=== PATIENT | male | born 1965 | race Caucasian/White ===

== ENCOUNTER 2017-02-04 07:32 | Day surgery (SDC) | payer OTHER ==
[2017-01-31 11:48] VITALS: BMI 31.3
[~2017-02-04 07:32] MED LIST: LACTATED RINGERS 1,000 ML IV SCH
[2017-02-04 07:47] VITALS: TEMP 97.2
[2017-02-04 07:49] LABS: Glucose,Whole Blood 140 mg/dL (75-99)
[2017-02-04] MEDS ORDERED: PROPOFOL 10 MG/ML 20 ML VIAL IV ONE (08:03)
[2017-02-04] MEDS ORDERED: LIDOCAINE 1% INJ 10MG/ML (20 ML MDV) ONE (08:03)
[2017-02-04 08:45] VITALS: RESP 18
[2017-02-04 09:13] VITALS: BP 125/81; PULSE 71
--- NOTE | 2017-02-05 14:45 | P.PCN ---
Date of Procedure: 02/04/17 Procedure(s) Performed: Procedure: Colonoscopy and biopsy. Preoperative diagnosis: Blood in the stools and history of colitis. Postoperative diagnosis: 1. 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 2. Low-grade internal hemorrhoids without bleeding at the time of this exam. 3. Isolated ulceration in the terminal ileum biopsied Preparation: HalfLytely prep. Sedation: Was provided by anesthesia. Brief clinical history: The patient is a 51-year-old male with history of colitis since age 18 or 19. His last colonoscopy in June 2015 showed mild proctosigmoiditis involving the distal 30-35 cm of the colon as well as low- grade internal hemorrhoids without bleeding at the time of the exam. A prior colonoscopy in April 2014 showed active proctosigmoiditis. There is family history of colon cancer in his maternal grandfather. In 2009 the patient had an adenomatous polyp removed. He is currently taking Delzicol 400 mg 2 twice a day. The patient continues to have 2-3 bowel movements every morning. These are not diarrheic, unless he eats the wrong items. He sees blood in his stools 2 -3 times per week. This evaluation is to assess for neoplasia and to assess the activity of his colitis to guide therapy. Procedure: With the patient on his left lateral decubitus position and after informed consent and adequate sedation, the perianal area was inspected and it did not show any fissures or fistulas. There were no masses felt on digital rectal examination. The Olympus CFQ 160L video colonoscope was then inserted in the rectum in the usual fashion and advanced to the cecum. I intubated the ileocecal valve and examined the terminal ileum. There was an isolated ulceration in the terminal ileum which I biopsied. The distal 40-45 cm of the colon showed edema and erythema and some friability and there were multiple linear and serpiginous ulcerations covered with white exudate noted in various areas of this segment most prominent in the rectum. There was some patches of normal looking mucosa as previously described. The exam to the cecum, otherwise , showed healthy mucosa. No polyps or tumors were seen or any obvious diverticular disease. I obtained multiple biopsies from the sigmoid and rectum. I then retroflexed endoscope in the rectum before the endoscope was withdrawn. Low-grade internal hemorrhoids were noted but there was no evidence of bleeding. Disposition: The patient tolerated the procedure well. Plan: The patient was advised to increase his does the cold to 33 times a day until I see him in the office and make additional recommendations regarding his care. I will discuss the possible adding of immunosuppressants or biologics depending on his course. I will keep you updated on his progress.
== END 2017-02-04 10:06 | disposition home or self-care (01) ==
LOC: ORWHC2ENDO 07:32
DX: K52.9 Noninfective gastroenteritis and colitis, unspecified (principal); K51.80 Other ulcerative colitis without complications; K64.8 Other hemorrhoids; Z80.0 Family history of malignant neoplasm of digestive organs; E11.9 Type 2 diabetes mellitus without complications; E78.5 Hyperlipidemia, unspecified; Z72.0 Tobacco use; Z79.84 Long term (current) use of oral hypoglycemic drugs; Z79.899 Other long term (current) drug therapy
CPT/HCPCS: 88305; 45380; J2001; J2704

== ENCOUNTER → 2018-12-26 | Outpatient (CLI) | payer OTHER ==
--- NOTE | 2018-12-26 13:09 | US ---
EXAMINATION TYPE: US scrotum with doppler. TECHNIQUE: Grayscale and color Doppler Duplex imaging performed of the scrotum. DATE OF EXAM: 12/26/2018 COMPARISON: NONE CLINICAL HISTORY: 53-year-old male N50.811; N50.89 Right testicular pain and swelling. Recent rectal surgery. FINDINGS: EXAM MEASUREMENTS: TESTICLES: Right Testicle: 4.0 x 2.2 x 3.0 cm Left Testicle: 4.4 x 2.3 x 3.1 cm EPIDIDYMIS HEAD: Right Epididymis: Unable to visualize Left Epididymis: 1.4 cm Doppler performed to assess for testicular vascularity; good bilateral color flow and waveforms are s een. There is no evidence of testicular torsion. Presence of hydroceles: Small amount of fluid visualized medially particularly on the left. Presence of varicoceles: No Difficult visualization of right testicle and epididymis due dirty shadowing. IMPRESSION: 1. No sonographic evidence for testicular torsion. 2. However, there is dirty shadowing within the right scrotum suggesting the presence of air. Correla te with surgical technique to exclude iatrogenically introduced air. Otherwise, correlate to exclude Derick's gangrene. CT as indicated. Legal Process Specialist is calling the office with results.
--- NOTE | 2018-12-26 13:59 | CT ---
EXAMINATION TYPE: CT pelvis wo con DATE OF EXAM: 12/26/2018 COMPARISON: Ultrasound same day HISTORY: 53-year-old male Right testicular pain and swelling. Additional history of recent transrecta l internal hemorrhoid surgery. TECHNIQUE: Contiguous axial scanning of the pelvis without IV contrast. Coronal and sagittal reconstr uctions performed. CT DLP: 366.5 mGycm Automated exposure control for dose reduction was used. FINDINGS: There is air within the right scrotal sac confirmed. No hydrocele on the left. Air extends along the right inguinal canal and right internal iliac chain on both sides of the inferior presacral region. A dditional air extends along the right flank retroperitoneum adjacent to the visualized ascending colo n. No discrete abscess is seen. No abnormal fluid collection the pelvis. Bones: Mild degenerative changes of the hips. IMPRESSION: AIR WITHIN THE RIGHT SCROTUM IS CONFIRMED. AIR EXTENDS ALONG THE RIGHT INGUINAL CANAL AND RIGHT INTER NAL ILIAC CHAIN AND IS LOCATED WITHIN THE BILATERAL PRESACRAL REGION AND ALSO DISSECTS ALONG THE RIGH T FLANK RETROPERITONEUM ADJACENT TO THE VISUALIZED ASCENDING COLON. SMALL RECTAL PERFORATION AND SECO NDARILY TRACKING AIR SHOULD BE CONSIDERED. NO ABSCESS IDENTIFIED. NO SIGNIFICANT SOFT TISSUE THICKENI NG OR FLUID IS SEEN AT THIS TIME. THE PATIENT SHOULD BE CLOSELY MONITORED FOR THE POTENTIAL DEVELOPME NT OF BENITA'S GANGRENE.
== END | disposition home or self-care (01) ==
LOC: RADUSWWP 12:19
PROVIDERS: ATTEND Nurse Practitioner
DX: K63.1 Perforation of intestine (nontraumatic) (principal); N50.811 Right testicular pain; N50.89 Other specified disorders of the male genital organs
CPT/HCPCS: 72192; 76870; 93975

== ENCOUNTER → 2019-01-05 | Outpatient (CLI) | payer OTHER ==
[2019-01-05 07:12] LABS: African American GFR (CKD) >90 (>60 ml/min/1.73 sqM); Blood Urea Nitrogen 18 mg/dL (9-20)
--- NOTE | 2019-01-05 09:07 | CT ---
EXAMINATION TYPE: CT abdomen pelvis w con DATE OF EXAM: 01/05/2019 COMPARISON: December 26, 2018 HISTORY: Other specified disorder of male genitals CT DLP: 1281.5 mGycm CONTRAST: CT scan of the abdomen and pelvis is performed with Oral Contrast and with IV Contrast, patient injec mariya with 100 mL of Isovue 300. FINDINGS: LUNG BASES-: No visible nodule. No infiltrate. LIVER/GB: No calcified gallstones. No space occupying hepatic lesion. Biliary tree is of normal ca liber. PANCREAS: No inflammation. No distinct mass. SPLEEN: No splenic enlargement. No lesion seen. ADRENALS: No nodule. No thickening. KIDNEYS/BLADDER: No hydronephrosis. No nephrolithiasis. No distinct renal mass. Urinary bladder g rossly unremarkable. BOWEL: Normal appendix. Normal bowel caliber. No inflammation. GENITAL ORGANS: Previously noted air within the right scrotal sac extending into the right inguinal canal and pelvis has resolved. Small hydroceles are noted. LYMPH NODES: No greater than 1cm abdominal or pelvic lymph nodes are appreciated. AORTA: No significant abnormality. OSSEOUS STRUCTURES: No significant abnormality is seen. OTHER: No significant additional abnormality is seen. IMPRESSION: 1. Previously noted air within the right scrotal sac extending into the right inguinal canal and pelv is has resolved. Small hydroceles are noted.
== END | disposition home or self-care (01) ==
LOC: RADCTMAIN 06:09
PROVIDERS: ATTEND Nurse Practitioner
DX: N43.3 Hydrocele, unspecified (principal)
CPT/HCPCS: 82565; 84520; 74177; 36415; Q9967

== ENCOUNTER 2020-08-31 06:37 | Day surgery (SDC) | payer OTHER ==
[2020-08-26 09:52] VITALS: BMI 30.8
[~2020-08-31 06:37] MED LIST changes: +DEXAMETHASONE SOD PHOSPHATE 4 MG/ML 1 ML VIAL IV ONE; +LIDOCAINE 1% (10MG/ML) FOR IV START INTRADERMA PRN; +SCOPOLAMINE 1.5MG/72HR PATCH TRANSDERM ONE; +ceFAZolin 1,000 MG in SODIUM CHLORIDE 0.9% IRRIGATIO 1,000 ML IRRIGATION PRN
[2020-08-31 07:43] LABS: Glucose,Whole Blood 154 mg/dL (75-99)
[2020-08-31] MEDS: ONDANSETRON 4 MG/2 ML VIAL IVP ONE ×2 (07:47→10:18)
[2020-08-31] MEDS ORDERED: LIDOCAINE 1% INJ 10MG/ML (20 ML MDV) ONE (08:00)
[2020-08-31] MEDS ORDERED: PROPOFOL 10 MG/ML 20 ML VIAL IV ONE (08:00)
[2020-08-31] MEDS ORDERED: MIDAZOLAM 2 MG/2 ML VIAL ONE (08:00)
[2020-08-31] MEDS ORDERED: KETAMINE 10 MG/ML 20 ML VIAL ONE (08:00)
[2020-08-31] MEDS ORDERED: SUCCINYLCHOLINE CHLORIDE 100 MG/5 ML SYR IV ONE (08:00)
[2020-08-31] MEDS ORDERED: fentaNYL (PF) 50 MCG/ML 2 ML AMP ONE (08:00)
[2020-08-31] MEDS ORDERED: BUPIVACAIN-EPI 0.5%-1:200,000 30 ML VIAL SQ ONE (08:32)
[2020-08-31] MEDS ORDERED: GELATIN SPONGE,ABSORB (LARGE) 1 EACH SPONGE MISCELLANE ONE (08:42)
[2020-08-31] MEDS ORDERED: THROMBIN (BOVINE) 5,000 UNIT VIAL MISCELLANE ONE (08:43)
--- NOTE | 2020-08-31 09:01 | XR ---
EXAMINATION TYPE: XR cervical spine 1V DATE OF EXAM: 08/31/2020 CLINICAL HISTORY: Needle placement TECHNIQUE: Crosstable lateral view of the cervical spine COMPARISON: None. FINDINGS: Crosstable lateral view of the cervical spine demonstrates localization device at the anter ior C6-7 level. Endotracheal tube identified. IMPRESSION: As above
[2020-08-31] MEDS ORDERED: BENZOCAINE/MENTHOL LOZENG 1 EACH LOZENGE MUCOUS MEM PRN (09:49)
[2020-08-31] MEDS ORDERED: HYDROmorphone 1 MG/ML 1 ML SYRINGE IVP PRN (09:49)
[2020-08-31] MEDS ORDERED: HYDROcodone/APAP 5-325MG 1 EACH TAB PO PRN ×2 (09:49→09:50)
[2020-08-31] MEDS ORDERED: HYDROmorphone 0.5 MG/0.5 ML SYRINGE IVP PRN (09:49)
[2020-08-31] MEDS ORDERED: traMADol 50 MG TAB PO PRN (09:50)
[2020-08-31] MEDS ORDERED: CYCLOBENZAPRINE 10 MG TAB PO PRN (09:50)
--- NOTE | 2020-08-31 09:58 | P.OP ---
Date of Procedure: 08/31/20 Preoperative Diagnosis: Cervical stenosis C5 6 C6 7, herniated nucleus pulposis C5 6 C6 7, degenerative disc disease, upper extremity radiculopathy, upper extremity weakness Postoperative Diagnosis: Same Anesthesia: GETA Pathology: none sent Condition: stable Disposition: PACU Description of Procedure: BRIEF OPERATIVE NOTE Preoperative Diagnosis:Cervical stenosis C5 6 C6 7, herniated nucleus pulposis C5 6 C6 7, degenerative disc disease, upper extremity radiculopathy, upper extremity weakness Postoperative Diagnosis:Cervical stenosis C5 6 C6 7, herniated nucleus pulposis C5 6 C6 7, degenerative disc disease, upper extremity radiculopathy, upper extremity weakness Procedure: Anterior cervical decompression with discectomy and fusion C5 6 C6 7 Placement of interbody graft C5 6 C6 7 Application of anterior cervical plate C5 6 and 7 Surgeon: Dr. Quiles Accounting Director: Christiano Dunham is present throughout the entire the case persistence during positioning, dissection, exposure, visualization, and all crucial elements of the case as well as closure. Anesthesia: General anesthesia per Dr. Gaviria Estimated blood loss: Approximately 30 mL Complications: None apparent Components implanted: K to Mily [place] anterior cervical plate system with Vikos interbody allograft bone graft and 1 mL of DBX bone putty Disposition: To recovery room in good stable condition. OPERATIVE INDICATIONS The patient has had long-standing issues in their neck and upper extremities. He's been having worsening past several months. He was having significant pain particularly at right upper extremity over radicular pattern. He was found have significant cervical disc changes at C5 6 and C6 7 with herniation and stenosis which caused well with his neck and upper extremity symptoms. The patient has been through conservative treatment. We discussed various treatment options including surgery, and the patient wishes to proceed with surgery We discussed the risk, patient's alternatives and benefits of surgery including but not limited to, risk of bleeding risk of infection, risk of need for further surgery, risk of decreased, loss of motion, muscle function, malunion nonunion, hardware failure, nerve damage, paralysis, heart attack, and . OPERATIVE SUMMARY After discussing all the risks, patient alternatives and benefits at length, the patient elected to proceed with surgical intervention, signed informed consent, and presented for their procedure. The patient was seen and examined in the preoperative holding area and the surgical site was marked. The patient was given antibiotics and brought to the operating room. The patient was positioned on the operating room table in a supine position being careful to pad any bony prominences and pressure points. The patient was sedated and intubated by anesthesia in standard fashion. Once the airway and C- spine were stabilized the patient's arms were padded and tucked at her side, with her shoulders gently taped. The head was placed in a donut pad with the neck in good neutral alignment and position. We were careful to maintain the patient's cervical spine and good neutral alignment and position throughout. The patient was prepped and draped in a normal standard fashion. An appropriate timeout and keystone protocol performed. We were able to proceed with the surgery. The local wound area was infiltrated with local anesthetic. An incision was made transversely approximately 2-1/2 cm over the appropriate levels at C6. Dissection was taken down subcutaneously to the level of the platysma which was split in line with its fibers. Dissection was taken with a carotid approach, with the trachea and esophagus medial and the carotid sheath l aterally. We dissected down to the anterior surface of the vertebral bodies. Intraoperative x-ray was taken which showed a marker at the appropriate level of C6 7. With the appropriate level positively confirmed, we were able to proceed with discectomy at the appropriate levels starting at C6 7 and then removing C5 6. All of the operative levels were exposed appropriately. The patient had all their twitches back, and there was no evidence of recurrent laryngeal issue. The wound was copiously irrigated and suctioned dry as had been done periodically throughout the case. At the appropriate levels, starting at C6 7 and C5 6 I established an annulotomy with an 11 blade scalpel. A discectomy was performed with a combination of pituitary rongeurs, curettes, a high-speed bur, and Kerrison rongeurs. The posterior longitudinal ligament was taken down as were any posterior osteophytes. Note was made of significant disc herniation with some posterior spurring. There is significant central and foraminal stenosis which was remedied with the decompression. This gave good central and bilateral foraminal decompression. There is no evidence of any dural tear or leak. The endplates were prepared with a high-speed bur. With the endplates in good parallel position, I was able to size for the appropriate size interbody graft. The wound was irrigated and suctioned dry the graft was prepared and malleted into position. It had good alignment and position with the anterior surface flush with the anterior surface of the vertebral bodies. This was done similarly the appropriate levels. With the grafts intact, I was able to measure and contour and appropriate sized plate. The plate was positioned at the midline over the appropriate levels of C5 6 and 7. Screw holes were established with a hand drill and drill guide. Screws were placed in good alignment and position with excellent bony purchase. They were seated under the locking device. The construct was checked and found to be stable. Intraoperative x-ray was taken which showed good alignment and position of the implants at the appropriate levels. There was no evidence of any dural tear or leak. Good hemostasis was maintained. The wound was copiously irrigated and suctioned dry as had been done periodically throughout the case. The platysma was closed with absorbable suture. The subcutaneous tissue was cl osed. The subcuticular tissue was closed with absorbable suture. The wound was cleaned and dried and dressed appropriately. A soft cervical collar was placed appropriately. The patient was woken up by anesthesia, extubated, transferred back gently to their hospital bed and brought to the recovery room in good stable condition. The patient will be admitted to the hospital for appropriate postoperative care, medical management and monitoring. We will continue to follow them closely about the postoperative course.
[2020-08-31] MEDS ORDERED: SODIUM CHLORIDE 0.9% 1,000 ML IV SCH (10:00)
[2020-08-31 10:09] VITALS: TEMP 97.1
[2020-08-31] MEDS: HYDROmorphone 0.5 MG/0.5 ML SYRINGE IVP PRN ×4 (10:15→10:31)
[2020-08-31 10:22] VITALS: RESP 16
[2020-08-31] MEDS ORDERED: LACTATED RINGERS 1,000 ML IV ONE (10:28)
[2020-08-31 10:43] LABS: Glucose,Whole Blood 171 mg/dL (75-99)
[2020-08-31] MEDS: MEPERIDINE 50 MG/ML SYRINGE IVP ONE ×2 (10:49→11:11)
--- NOTE | 2020-08-31 11:21 | XR ---
EXAMINATION TYPE: XR cervical spine 1V DATE OF EXAM: 08/31/2020 COMPARISON: NONE HISTORY: POST FUSION TECHNIQUE: Crosstable lateral lumbar portable view of the cervical spine. FINDINGS: Status post changes of ACDF with anterior fixation plate and intervertebral body spacers no mariya at C5-6 and C6-7. Alignment appears within normal limits. IMPRESSION: As above
[2020-08-31] MEDS ORDERED: HYDROcodone/APAP 5-325MG 1 EACH TAB ONE (12:13)
[2020-08-31] MEDS ORDERED: HYDROmorphone 0.5 MG/0.5 ML SYRINGE IVP ONE (12:20)
[2020-08-31] MEDS ORDERED: HYDROcodone/APAP 5-325MG 1 EACH TAB PO ONE (12:45)
[2020-08-31 13:41] VITALS: BP 137/81; PULSE 72
[2020-08-31] MEDS ORDERED: NON FORMULARY DRUG (Insulin Degludec [Tresiba] 100 UNIT/ML Vial) SQ SCH (21:00)
[2020-09-01] MEDS ORDERED: ATORVASTATIN 20 MG TAB PO SCH (09:00)
== END 2020-08-31 12:02 | disposition home or self-care (01) ==
LOC: OR 06:37
PROVIDERS: ATTEND Orthopaedic Surgery Orthopaedic Surgery of the Spine
DX: M50.122 Cervical disc disorder at C5-C6 level with radiculopathy (principal); M48.02 Spinal stenosis, cervical region; M50.10 Cervical disc disorder with radiculopathy, unspecified cervical region; M25.78 Osteophyte, vertebrae; M47.22 Other spondylosis with radiculopathy, cervical region; E78.5 Hyperlipidemia, unspecified; E11.9 Type 2 diabetes mellitus without complications; K51.90 Ulcerative colitis, unspecified, without complications; Z79.4 Long term (current) use of insulin; Z79.899 Other long term (current) drug therapy; Z98.890 Other specified postprocedural states
CPT/HCPCS: 87635; 72020; 22551; 22552; 22845; 20931; C1713 ×2; C1762; J2250; J2175; J0690 ×2; J2405; J2001; J3010; J0330; J2704; J1170

== ENCOUNTER 2021-03-08 07:08 | Day surgery (SDC) | payer OTHER ==
[2021-03-03 12:10] VITALS: BMI 31.3
[~2021-03-08 07:08] MED LIST changes: -DEXAMETHASONE SOD PHOSPHATE 4 MG/ML 1 ML VIAL IV ONE; -SCOPOLAMINE 1.5MG/72HR PATCH TRANSDERM ONE; -ceFAZolin 1,000 MG in SODIUM CHLORIDE 0.9% IRRIGATIO 1,000 ML IRRIGATION PRN
[2021-03-08 07:40] VITALS: TEMP 97.3
[2021-03-08 07:43] LABS: Glucose,Whole Blood 133 mg/dL (75-99)
[2021-03-08] MEDS ORDERED: PROPOFOL 10 MG/ML 20 ML VIAL IV ONE (08:09)
--- NOTE | 2021-03-08 08:16 | P.GSHP ---
History of Present Illness H&P Date: 03/08/21 CHIEF COMPLAINT: Colon screen HISTORY OF PRESENT ILLNESS: The patient is a 55-year-old male who presents for colon screen. He has personal history of ulcerative colitis for over 40+ years. Last colonoscopy 2-5 years ago with polyps. He has family history of colon cancer. Lower endoscopy was offered for further evaluation and management. PAST MEDICAL HISTORY: Please see list. PAST SURGICAL HISTORY: Please see list. MEDICATIONS: Please see list. ALLERGIES: Please see list. SOCIAL HISTORY: No illicit drug use FAMILY HISTORY: No reports of Crohn disease. Pertinent for colon cancer. REVIEW OF ORGAN SYSTEMS: CONSTITUTIONAL: No reports of fevers or chills. PHYSICAL EXAM: VITAL SIGNS: Stable GENERAL: Well-developed pleasant in no acute distress. HEENT: No scleral icterus. Extraocular movements grossly intact. Moist buccal mucosa. NECK: Supple without lymphadenopathy. CHEST: Unlabored respirations. Equal bilateral excursions. CARDIOVASCULAR: Regular rate and rhythm. Distal 2+ pulses. ABDOMEN: Soft, nontender, nondistended. MUSCULOSKELETAL: No clubbing, cyanosis, or edema. ASSESSMENT: 1. Colon screen. PLAN: 1. Recommend proceeding with a lower endoscopy 2. He is elevated with a personal history of ulcerative colitis Past Medical History Past Medical History: Diabetes Mellitus, Hyperlipidemia Additional Past Medical History / Comment(s): Ulcerative colitis. Hx Pericarditis 26 yrs ago. Hx rectal bleeding due to Ulcerative Colitis. History of Any Multi-Drug Resistant Organisms: None Reported Additional Past Surgical History / Comment(s): Cleft palate surgeries X4, several colonoscopies, Hemorrhoidectomy X2.NECK SURGERY-CERVICAL FUSION Past Anesthesia/Blood Transfusion Reactions: Postoperative Nausea & Vomiting (PONV) Additional Past Anesthesia/Blood Transfusion Reaction / Comment(s): No hx blood transfusion. Smoking Status: Never smoker - Past Family History Mother Family Medical History: No Reported History Brother(s) Family Medical History: Cancer Additional Family Medical History / Comment(s): Leukemia. Medications and Allergies Home Medications Medication Instructions Recorded Confirmed Type Insulin Degludec [Tresiba] 36 units SQ HS 08/26/20 03/08/21 History Allergies Allergy/AdvReac Type Severity Reaction Status Date / Time No Known Allergies Allergy Verified 03/08/21 07:28 Surgical - Exam Vital Signs Temp Pulse Resp BP Pulse Ox 97.3 F L 71 16 130/80 98 03/08/21 07:35 03/08/21 07:35 03/08/21 07:35 03/08/21 07:35 03/08/21 07:35 Results - Labs Abnormal Lab Results - Last 24 Hours (Table) 03/08/21 Range/Units 07:38 POC Glucose (mg/dL) 133 H (75-99) mg/dL
[2021-03-08 08:39] LABS: Glucose,Whole Blood 146 mg/dL (75-99)
--- NOTE | 2021-03-08 08:45 | P.PCN ---
Date of Procedure: 03/08/21 Description of Procedure: PREOPERATIVE DIAGNOSIS: Colonoscopy screening. Ulcerative colitis Family history colon cancer Personal history colon polyps POSTOPERATIVE DIAGNOSIS: Colonoscopy screening. Ulcerative colitis Family history colon cancer Personal history colon polyps OPERATION: Colonoscopy to the cecum, ileocecal valve and appendiceal orifice. SURGEON: Margaret Jara MD. ANESTHESIA: MAC. INDICATIONS: The patient is a 55-year-old male who presents for colonoscopy screening. Benefits and risks were described and informed consent was obtained. DESCRIPTION OF PROCEDURE: The patient had undergone Sutab prep. The patient had been brought into the operating room and laid in the left lateral decubitus position. After adequate intravenous sedation, the rectum was examined with 2% lidocaine jelly. No external hemorrhoids were encountered. The rectal tone was within normal limits. No lesions were palpated in the rectal vault. An Olympus colonoscope was advanced until the cecum, ileocecal valve and appendiceal orifice were clearly viewed. The prep was fair. No scattered diverticulosis was encountered. No colonic polyps were found. Retroflexion of the scope demonstrated grade 2 internal hemorrhoids without active bleeding or inflammation. The colon was desufflated. The patient had tolerated the procedure well. Withdrawal time was over 6 minutes. FINDINGS: Aronchick preparation quality scale 3 (1-5) Internal hemorrhoids, grade 2 No external prolapsed hemorrhoids. No arteriovenous malformations. No adenomatous polyps. Mucosal blunting consistent with history of ulcerative colitis RECOMMENDATIONS: Lower endoscopy in 2 years2022 Plan - Discharge Summary Discharge Rx Participant: No New Discharge Prescriptions: Continue Insulin Degludec [Tresiba] 36 units SQ HS Discharge Medication List Insulin Degludec [Tresiba] 36 units SQ HS 08/26/20 [History] Follow up Appointment(s)/Referral(s): Margaret Jara MD [STAFF PHYSICIAN] - As Needed Patient Instructions/Handouts: *Surgery [facility] - (Anesthesia) Endoscopy Discharge Instructions, Colonoscopy (DC) Activity/Diet/Wound Care/Special Instructions: Repeat colonoscopy 2 years2022 Discharge Disposition: HOME SELF-CARE
[2021-03-08 08:48] VITALS: BP 110/70; PULSE 74; RESP 18
== END 2021-03-08 09:12 | disposition home or self-care (01) ==
LOC: ORWHC2ENDO 07:08
PROVIDERS: ATTEND Surgery Plastic and Reconstructive Surgery
DX: Z12.11 Encounter for screening for malignant neoplasm of colon (principal); K64.8 Other hemorrhoids; K51.90 Ulcerative colitis, unspecified, without complications; E11.9 Type 2 diabetes mellitus without complications; E78.5 Hyperlipidemia, unspecified; Z79.4 Long term (current) use of insulin; Z80.0 Family history of malignant neoplasm of digestive organs; Z86.010 Personal history of colon polyps
CPT/HCPCS: 45378; J2704